=== PATIENT | male | born 1945 | race African-American/Black ===

== ENCOUNTER 2018-11-29 08:59 | Outpatient (CLI) | payer MEDICARE ==
--- NOTE | 2018-11-29 09:19 | RAD ---
EXAM: Chest 2 views: HISTORY: Dyspnea COMPARISON: 11/29/2018 FINDINGS: There is a normal-sized cardiomediastinal silhouette. There is no evidence of consolidation, mass, or pleural effusion. Degenerative changes are seen in the spine. IMPRESSION: No evidence of acute cardiopulmonary disease
== END 2018-11-29 09:00 | disposition home or self-care (01) ==
LOC: RAD 08:59
PROVIDERS: ATTEND Internal Medicine Critical Care Medicine
DX: R06.00 Dyspnea, unspecified (principal)
CPT/HCPCS: 71046

== ENCOUNTER 2020-11-25 09:14 | Outpatient (CLI) | payer MEDICARE, OTHER | END 2020-11-25 09:15 | disposition home or self-care (01) | LOC: BICRAD 09:14 | PROVIDERS: ATTEND Internal Medicine Critical Care Medicine | DX: R06.00 Dyspnea, unspecified (principal); J98.4 Other disorders of lung | CPT/HCPCS: 71046 ==